=== PATIENT | female | born 1980 | race Caucasian/White ===

== ENCOUNTER → 2021-06-19 10:53 | Outpatient (CLI) | payer BC, SELFPAY ==
--- NOTE | 2021-06-19 11:03 | DI.RAD.S_ITS ---
PROCEDURE: XR CERVICAL SPINE 4V OR 5V INDICATIONS: NECK PAIN TECHNIQUE: 5 views of the cervical spine acquired. COMPARISON: None. FINDINGS: Bones: No fractures or dislocations to the T1 level. Minimal endplate osteophytosis and disc height loss at C5-6. Oblique images demonstrate no bony foraminal stenoses. Soft tissues: No prevertebral soft tissue swelling. IMPRESSION: No acute osseous abnormality. Dictated by: Gurdeep August M.D. on 06/19/2021 at 11:34 Approved by: Gurdeep August M.D. on 06/19/2021 at 11:39
== END ==
PROVIDERS: PCP Family Medicine; Referring Provider Physical Medicine & Rehabilitation; Visit Provider Physical Medicine & Rehabilitation
DX: M54.2 Cervicalgia (principal)
CPT/HCPCS: 72050